=== PATIENT | male | born 1940 | race Caucasian/White ===

== ENCOUNTER 2020-12-31 19:34 | Inpatient (IN) | payer MEDICARE, OTHER ==
[2020-12-31 20:14] LABS: #Eosinphils 0.1 thou/uL (0.0-0.7); #Lymphocytes 1.8 thou/uL (1.20-3.40); #Monocytes 0.7 thou/uL (0.11-0.59); #Neutrophils 5.4 thou/uL (1.40-6.50); %Basophils 0.4 % (0.0-1.0); %Eosinophils 0.7 % (0.0-10.0); %Lymphocytes 22.3 % (21.0-51.0); %Monocytes 8.8 % (0.0-10.0); %Neutrophils 67.8 % (42.0-75.0); Hemoglobin 15.2 g/dL (14.0-18.0); Mean Corpuscular HGB CONC 32.7 g/dL (32.0-36.0); Mean Corpuscular Hemoglobin 30.7 pg (27.0-31.0); Platelet Count 235 thou/uL (130-400); RBC Distribution Width 14.5 % (11.5-14.5); Red Blood Cell (RBC) Count 4.94 mill/uL (4.70-6.10)
[2020-12-31 20:29] LABS: ALT (SGPT) 13 U/L (8-55); AST (SGOT) 17 U/L (5-34); Alkaline Phosphatase 76 U/L (40-110); Anion Gap 12 mmol/L (10-20); BUN (Urea Nitrogen) 12 mg/dL (8.4-25.7); Bilirubin, Total 0.3 mg/dL (0.2-1.2); Calc. Creatinine Clearance 0 mL/min (70-130); Calcium 8.8 mg/dL (7.8-10.44); Carbon Dioxide 28 mmol/L (23-31); Chloride 102 mmol/L (98-107); Globulin 2.3 g/dL (2.4-3.5); Glucose 117 mg/dL (83-110); Magnesium 2.2 mg/dL (1.6-2.6); Protein, Total 6.3 g/dL (5.8-8.1); Sodium 138 mmol/L (136-145)
[2020-12-31] MEDS ORDERED: Ondansetron PF 4 MG/2 ML Vial IVP PRN (22:03)
[2021-01-01 00:06] VITALS: BMI 29.7
[2021-01-01 00:58] LABS: Troponin I 0.043 ng/mL (< 0.028)
[2021-01-01] MEDS ORDERED: Melatonin 3 MG TAB PO SCH ×2 (01:00→21:30)
[2021-01-01] MEDS: hydrALAZINE 20 MG/ML VIAL SLOW IVP PRN ×2 (01:16→12:54)
[2021-01-01] MEDS: Nitroglycerin 0.4 MG TAB (25 Tab Bottle) SL PRN ×5 (01:39→12:52)
[2021-01-01 02:17] LABS: Troponin I 0.066 ng/mL (< 0.028)
[2021-01-01] MEDS ORDERED: Nitroglycerin 2% Ointment 1 INCH/1 GM Packet TOP SCH ×2 (04:15→04:53)
[2021-01-01] MEDS ORDERED: Dextrose 5% in Water 1,000 ML IV PRN (04:54)
[2021-01-01] MEDS ORDERED: HumaLOG 300 UNITS/3 ML VIAL SC PRN ×2 (04:54)
[2021-01-01] MEDS ORDERED: Dextrose 50% Abboject 50 ML SYRINGE SLOW IVP PRN (04:54)
[2021-01-01] MEDS ORDERED: Morphine 4 MG/ML VIAL SLOW IVP SCH (05:15)
[2021-01-01 05:22] LABS: Anion Gap 12 mmol/L (10-20); BUN (Urea Nitrogen) 10 mg/dL (8.4-25.7); Calc. Creatinine Clearance 98 mL/min (70-130); Calcium 9.1 mg/dL (7.8-10.44); Carbon Dioxide 28 mmol/L (23-31); Chloride 103 mmol/L (98-107); Glucose 106 mg/dL (83-110); Sodium 139 mmol/L (136-145)
[2021-01-01 05:26] LABS: Troponin I 0.086 ng/mL (< 0.028)
[2021-01-01 05:36] LABS: #Eosinphils 0.1 thou/uL (0.0-0.7); #Lymphocytes 1.4 thou/uL (1.20-3.40); #Monocytes 0.8 thou/uL (0.11-0.59); #Neutrophils 5.7 thou/uL (1.40-6.50); %Basophils 0.3 % (0.0-1.0); %Eosinophils 0.8 % (0.0-10.0); %Lymphocytes 17.5 % (21.0-51.0); %Monocytes 10.1 % (0.0-10.0); %Neutrophils 71.3 % (42.0-75.0); Hemoglobin 15.1 g/dL (14.0-18.0); Mean Corpuscular HGB CONC 31.8 g/dL (32.0-36.0); Mean Corpuscular Hemoglobin 29.8 pg (27.0-31.0); Mean Corpuscular Volume 93.7 fL (78.0-98.0); Mean Platelet Volume 8.1 fL (7.4-10.4); Platelet Count 234 thou/uL (130-400); RBC Distribution Width 14.6 % (11.5-14.5); Red Blood Cell (RBC) Count 5.08 mill/uL (4.70-6.10)
[2021-01-01] MEDS ORDERED: Communication Order-Pharmacy FS SCH (07:30)
[2021-01-01] MEDS: Enoxaparin Sodium 100 MG/ML SYRINGE SC SCH ×2 (08:27→20:08)
[2021-01-01] MEDS: Acetaminophen 325 MG TAB PO PRN ×2 (08:32→15:18)
[2021-01-01] MEDS ORDERED: Lisinopril 20 MG TAB PO SCH (09:00)
[2021-01-01] MEDS ORDERED: Metoprolol Tartrate 50 MG TAB PO SCH (13:30)
[2021-01-01 15:42] LABS: SARS-CoV-2 PCR by NAA Not Detected (NotDetected)
[2021-01-01] MEDS: Atorvastatin Calcium 40 MG TAB PO SCH (20:09)
[2021-01-01] MEDS: Metoprolol Tartrate 50 MG TAB PO SCH (20:09)
[2021-01-02] MEDS: Cepastat Lozenges 1 LOZ PO PRN ×2 (01:36→20:46)
[2021-01-02 04:44] LABS: #Eosinphils 0.1 thou/uL (0.0-0.7); #Lymphocytes 1.7 thou/uL (1.20-3.40); #Monocytes 0.8 thou/uL (0.11-0.59); #Neutrophils 4.4 thou/uL (1.40-6.50); %Basophils 0.4 % (0.0-1.0); %Eosinophils 1.3 % (0.0-10.0); %Monocytes 11.1 % (0.0-10.0); %Neutrophils 63.3 % (42.0-75.0); Hemoglobin 15.4 g/dL (14.0-18.0); Mean Corpuscular HGB CONC 31.7 g/dL (32.0-36.0); Mean Corpuscular Hemoglobin 29.7 pg (27.0-31.0); Mean Corpuscular Volume 93.5 fL (78.0-98.0); Mean Platelet Volume 8.1 fL (7.4-10.4); Platelet Count 257 thou/uL (130-400); RBC Distribution Width 14.7 % (11.5-14.5)
[2021-01-02 04:51] LABS: Hemoglobin A1c 5.5 % (4.0-6.0)
[2021-01-02 05:06] LABS: Anion Gap 10 mmol/L (10-20); BUN (Urea Nitrogen) 9 mg/dL (8.4-25.7); Calc. Creatinine Clearance 82 mL/min (70-130); Calcium 9.3 mg/dL (7.8-10.44); Carbon Dioxide 30 mmol/L (23-31); Cardiac Risk 8.9 (Less than 4.5); Chloride 102 mmol/L (98-107); Cholesterol 205 mg/dl (< 200 Desired); Glucose 96 mg/dL (83-110); HDL Cholesterol 23 mg/dL (>60 Neg Risk); LDL Cholesterol, Calculated 135 mg/dL; Magnesium 2.1 mg/dL (1.6-2.6); Potassium 4.7 mmol/L (3.5-5.1); Sodium 137 mmol/L (136-145); Triglycerides 234 mg/dL (Less than 150)
[2021-01-02] MEDS: Metoprolol Tartrate 50 MG TAB PO SCH ×2 (05:46→20:45)
[2021-01-02] MEDS: Aspirin 81 mg Enteric Coated Tablet PO SCH (05:46)
[2021-01-02] MEDS: Levothyroxine Sodium 75 MCG TAB PO SCH (05:46)
[2021-01-02] MEDS: Lisinopril 20 MG TAB PO SCH (05:46)
[2021-01-02] MEDS ORDERED: Lidocaine 1% (PF) 30 ML VIAL ONE (06:27)
[2021-01-02] MEDS ORDERED: Heparin 10,000 UNITS/ 10 ML VIAL ONE (06:31)
[2021-01-02] MEDS ORDERED: Nitroglycerin 100MG/250ML BOT 250 ML ONE (06:31)
[2021-01-02] MEDS ORDERED: Verapamil 5 MG/2 ML VIAL ONE (06:31)
[2021-01-02] MEDS ORDERED: Midazolam HCl 2 mg/2 ml Vial ONE (06:41)
[2021-01-02] MEDS ORDERED: Fentanyl 100 MCG/2 ML VIAL ONE (06:41)
[2021-01-02] MEDS ORDERED: ENALAPRIL MALEATE 20 MG PO SCH (09:00)
[2021-01-02] MEDS ORDERED: Iopamidol 370 76% 50 ML VIAL FS ONE (13:26)
[2021-01-02] MEDS ORDERED: Iopamidol 370 76% 100 ML VIAL ONE (13:26)
[2021-01-02] MEDS ORDERED: Clopidogrel Bisulfate 300 MG TAB PO SCH (13:30)
[2021-01-02] MEDS ORDERED: Melatonin 3 MG TAB PO PRN (13:38)
[2021-01-02] MEDS: Nitroglycerin 0.4 MG TAB (25 Tab Bottle) SL PRN ×4 (17:48→23:45)
[2021-01-02] MEDS: Acetaminophen 325 MG TAB PO PRN (19:15)
[2021-01-02] MEDS ORDERED: Acetaminophen/Codeine 30-300mg Tablet PO PRN ×2 (19:29)
[2021-01-02] MEDS ORDERED: Sodium Chloride 0.9% 200 ML IV PRN (19:29)
[2021-01-02] MEDS: Atorvastatin Calcium 40 MG TAB PO SCH (20:45)
[2021-01-03 01:09] LABS: Troponin I 0.501 ng/mL (< 0.028)
[2021-01-03] MEDS ORDERED: Morphine 2 MG/ML VIAL SLOW IVP PRN (01:54)
[2021-01-03] MEDS ORDERED: Morphine 4 MG/ML VIAL SLOW IVP PRN (02:53)
[2021-01-03] MEDS ORDERED: Electrolyte Replacement Protocol 1 EACH FS PRN (04:57)
[2021-01-03 06:38] LABS: Anion Gap 12 mmol/L (10-20); BUN (Urea Nitrogen) 13 mg/dL (8.4-25.7); Calc. Creatinine Clearance 85 mL/min (70-130); Calcium 9.3 mg/dL (7.8-10.44); Carbon Dioxide 31 mmol/L (23-31); Chloride 98 mmol/L (98-107); Glucose 103 mg/dL (83-110); Sodium 136 mmol/L (136-145)
[2021-01-03 07:00] LABS: Potassium 4.8 mmol/L (3.5-5.1)
[2021-01-03] MEDS: Nitroglycerin 0.4 MG TAB (25 Tab Bottle) SL PRN ×4 (07:36→13:43)
[2021-01-03] MEDS ORDERED: Enoxaparin Sodium 40 MG/0.4 ML SYRINGE SC SCH (09:00)
[2021-01-03] MEDS: Lisinopril 20 MG TAB PO SCH (09:00)
[2021-01-03] MEDS: Enoxaparin Sodium 100 MG/ML SYRINGE SC SCH ×2 (09:00→20:30)
[2021-01-03] MEDS ORDERED: Mesalamine [Lialda] 1.2 GM Tablet.Dr PO SCH (09:00)
[2021-01-03] MEDS: Clopidogrel Bisulfate 75 MG TAB PO SCH (09:00)
[2021-01-03] MEDS: Metoprolol Tartrate 50 MG TAB PO SCH ×2 (09:00→20:30)
[2021-01-03] MEDS: Levothyroxine Sodium 75 MCG TAB PO SCH (09:00)
[2021-01-03] MEDS: Aspirin 81 mg Enteric Coated Tablet PO SCH (09:00)
[2021-01-03] MEDS: Folic Acid 1 MG TAB PO SCH (09:02)
[2021-01-03] MEDS: sulfaSALAzine 500 MG TAB PO SCH ×2 (09:02→20:31)
[2021-01-03] MEDS: Acetaminophen 325 MG TAB PO PRN ×2 (09:02→20:31)
[2021-01-03 10:50] LABS: CKMB 18.2 ng/mL (0-6.6)
[2021-01-03] MEDS ORDERED: Nitroglycerin 2% Ointment 1 INCH/1 GM Packet TOP SCH (14:45)
[2021-01-03] MEDS: Atorvastatin Calcium 40 MG TAB PO SCH (20:30)
[2021-01-03] MEDS: Nitroglycerin 2% Ointment 1 INCH/1 GM Packet TOP SCH (20:30)
[2021-01-04 06:38] LABS: Anion Gap 11 mmol/L (10-20); BUN (Urea Nitrogen) 13 mg/dL (8.4-25.7); Calc. Creatinine Clearance 78 mL/min (70-130); Calcium 8.6 mg/dL (7.8-10.44); Carbon Dioxide 31 mmol/L (23-31); Chloride 99 mmol/L (98-107); Glucose 97 mg/dL (83-110); Magnesium 2.1 mg/dL (1.6-2.6); Potassium 4.3 mmol/L (3.5-5.1); Sodium 137 mmol/L (136-145)
[2021-01-04] MEDS: Folic Acid 1 MG TAB PO SCH (09:17)
[2021-01-04] MEDS: Clopidogrel Bisulfate 75 MG TAB PO SCH (09:17)
[2021-01-04] MEDS: Lisinopril 20 MG TAB PO SCH (09:17)
[2021-01-04] MEDS: Aspirin 81 mg Enteric Coated Tablet PO SCH (09:17)
[2021-01-04] MEDS: Levothyroxine Sodium 75 MCG TAB PO SCH (09:17)
[2021-01-04] MEDS: sulfaSALAzine 500 MG TAB PO SCH (09:17)
[2021-01-04] MEDS: Enoxaparin Sodium 100 MG/ML SYRINGE SC SCH (09:17)
[2021-01-04] MEDS: Metoprolol Tartrate 50 MG TAB PO SCH (09:18)
[2021-01-04] MEDS: Nitroglycerin 2% Ointment 1 INCH/1 GM Packet TOP SCH (09:18)
[2021-01-04] MEDS: Acetaminophen 325 MG TAB PO PRN (09:20)
[2021-01-04 11:59] VITALS: BP 133/64; TEMP 98
== END 2021-01-04 14:50 | disposition short-term general hospital (02) | DRG 281 ==
LOC: ERS 19:34 → 2SW 21:27 → OBSVTOIN 01-02 14:44
PROVIDERS: ADMIT Student in an Organized Health Care Education/Training Program; ATTEND Internal Medicine
PROC: 4A023N7 Measurement of Cardiac Sampling and Pressure, Left Heart, Percutaneous Approach (ICD-10-PCS; principal; 2021-01-02)
PROC: B2151ZZ Fluoroscopy of Left Heart using Low Osmolar Contrast (ICD-10-PCS; 2021-01-02)
PROC: B2111ZZ Fluoroscopy of Multiple Coronary Arteries using Low Osmolar Contrast (ICD-10-PCS; 2021-01-02)
DX: I21.4 Non-ST elevation (NSTEMI) myocardial infarction (principal); K51.90 Ulcerative colitis, unspecified, without complications; I25.110 Atherosclerotic heart disease of native coronary artery with unstable angina pectoris; Z20.822 Contact with and (suspected) exposure to COVID-19; E03.9 Hypothyroidism, unspecified; E78.00 Pure hypercholesterolemia, unspecified; I16.0 Hypertensive urgency; I45.10 Unspecified right bundle-branch block; Z79.82 Long term (current) use of aspirin; Z79.890 Hormone replacement therapy; Z87.442 Personal history of urinary calculi; Z79.899 Other long term (current) drug therapy; Z79.52 Long term (current) use of systemic steroids; Z90.49 Acquired absence of other specified parts of digestive tract; Z87.891 Personal history of nicotine dependence; Z82.49 Family history of ischemic heart disease and other diseases of the circulatory system
CPT/HCPCS: 36415; 71045; 80048; 80053; 80061; 82553; 83036; 83735; 83880; 84484; 85025; 93005; 93010; 93306; 93458; 93798; 94760; 96372; 96374; 96376; 99152; 99153; G0378; J0360; J1644; J1650; J2001; J2250; J3010; Q9967; U0003; U0005